=== PATIENT | male | born 1965 | race American Indian/Alaskan Native ===

== ENCOUNTER 2018-08-29 09:16 | Day surgery (SDC) | payer OTHER ==
--- NOTE | 2018-08-29 09:56 | Anesthesia Consultation ---
Anesthesia Consult and Med Hx Date of service: 08/29/18 - Airway Anesthetic Teeth Evaluation: Good ROM Head & Neck: Adequate Mental/Hyoid Distance: Adequate Mallampati Class: Class II Intubation Access Assessment: Probably Good - Pulmonary Exam CTA: Yes - Cardiac Exam Cardiac Exam: RRR - Pre-Operative Health Status ASA Pre-Surgery Classification: ASA2 Proposed Anesthetic Plan: MAC - Cardiovascular System Hx Hypertension: Yes
--- NOTE | 2018-08-29 09:56 | Anesthesia Day of Surgery ---
Anesthesia Day of Surgery - Day of Surgery Patient Examined: Yes Patient H&P Reviewed: Yes Patient is NPO: Yes
[2018-08-29] MEDS ORDERED: NACL 0.9% 1000 ML 1,000 ML IV SCH (10:00)
[2018-08-29] MEDS ORDERED: DIPRIVAN 10 MG/ML IV ONE ×2 (12:45)
[2018-08-29] MEDS ORDERED: XYLOCAINE MPF 2% ONE (12:47)
[2018-08-29] MEDS ORDERED: WATER FOR IRRIG STERILE IR ONE (12:55)
[2018-08-29] MEDS ORDERED: WATER FOR IRRIG STERILE ONE (12:55)
--- NOTE | 2018-08-29 13:08 | Operative Report ---
Operative Report Operative Report: Date of procedure: 08/29/2018 Procedure: Colonoscopy with Multiple Hot Biopsy Polypectomies. Attending physician: Aren Alfaro MD Tax Intern: Aren Alfaro MD Indication: Patient is a 52-year-old male who presents for screening colonoscopy. This colonoscopy serves to evaluate patient so that treatment may be directed based on the findings. Consent: Informed consent was obtained after advising the patient and family regarding nature of this procedure, its indications, potential benefits as well as possible complications including but not limited to bleeding perforation and adverse reaction to medication, infection as well as other cardiopulmonary complications. An informed written and verbal consent was then obtained after due opportunity was provided for questions and answers. Monitoring: Patient was monitored continuously with pulse oximetry and electrocardiographic recordings as well as blood pressure recordings. Vital signs remained stable throughout this procedure with no untoward events. Preoperative assessment: Patient was assessed immediately prior to this procedure for capacity to tolerate monitored anesthesia care and moderate sedation as well as general anesthesia. Patient's ASA classification is 2, Mallampati class is 2, Hyomental distance is 3. Instrument: InfiniDBn video colonoscope Medications: Propofol given intravenously in divided doses. For details please refer to anesthesia records. Description of procedure: Patient was placed in the left lateral decubitus position after achieving sedation, a digital rectal examination was performed following which the colonoscope was introduced into the anal verge and advanced to the cecum which was identified by the cecal valve, the appendiceal orifice, as well as by the cecal strap and direct transillumination. The colonoscope was subsequently withdrawn with careful inspection of all mucosal surfaces. Patient tolerated this procedure well and was subsequently taken to the recovery room. The following findings were noted. Findings: Patient had 2 diminutive flat polyps in the sigmoid colon which measured 4-6 mm.. The polyps were removed by hot biopsy polypectomy and retrieved. There were scattered diverticula in the sigmoid colon and also in the descending colon. The rest of the colon to the cecum was normal. On the retroflex view at the anal verge, patient had prominent internal hemorrhoids. Impression: Multiple diminutive sigmoid colon polyps status post hot biopsy polypectomy. Diverticula disease of the colon. Prominent Internal hemorrhoids. Plan: Follow pathology report. High-fiber diet. Repeat colonoscopy in 5 years. May benefit from hemorrhoidal band ligation
--- NOTE | 2018-08-29 13:08 | Discharge Summary ---
Short Stay Discharge Plan Activity: advance as tolerated Weight Bearing Status: Weight Bear as Tolerated Diet: regular Follow up with: PRIMARY CARE, [Primary Care Provider] - 7 Days
[2018-08-29 14:08] VITALS: BP 112/71
== END 2018-08-29 09:17 | disposition home or self-care (01) ==
LOC: GIO 09:16
PROVIDERS: ATTEND Internal Medicine Gastroenterology
DX: K63.5 Polyp of colon (principal); K57.30 Diverticulosis of large intestine without perforation or abscess without bleeding; K64.8 Other hemorrhoids; M06.9 Rheumatoid arthritis, unspecified; I10 Essential (primary) hypertension; Z79.899 Other long term (current) drug therapy; Z87.891 Personal history of nicotine dependence; Z80.0 Family history of malignant neoplasm of digestive organs
CPT/HCPCS: 45384; 88305; J2704; J7030